=== PATIENT | male | born 1965 ===

== ENCOUNTER 2017-01-22 14:40 | Emergency (ER) | payer OTHER ==
[2017-01-22 14:55] VITALS: BP 134/82; PULSE 78; RESP 18; TEMP 98.5
--- NOTE | 2017-01-22 15:04 | ED ---
General Adult HPI - General Chief complaint: Extremity Injury, Lower Stated complaint: Foot Pain Time Seen by Provider: 01/22/17 14:52 Source: patient, RN notes reviewed Mode of arrival: ambulatory Limitations: no limitations - History of Present Illness Initial comments: Patient's a 51-year-old male who presents emergency room today with chief complaint of an injury to the right ankle that occurred approximately 2 months ago. Patient does admit that he was walking. Stepped into a pothole twisting the right ankle. He does admit that he's had pain to this area off-and-on since. Patient denies any other complaints. States it is worse with certain flexion and extension of the right ankle. Patient denies any recent fever, chills, shortness of breath, chest pain, back pain, abdominal pain, nausea or vomiting, numbness or tingling, dysuria or hematuria, constipation or diarrhea, headaches or visual changes, or any other complaints. - Related Data Allergies Allergy/AdvReac Type Severity Reaction Status Date / Time No Known Allergies Allergy Verified 01/22/17 14:50 Review of Systems ROS Statement: Those systems with pertinent positive or pertinent negative responses have been documented in the HPI. ROS Other: All systems not noted in ROS Statement are negative. Past Medical History Past Medical History: No Reported History History of Any Multi-Drug Resistant Organisms: None Reported Past Surgical History: No Surgical Hx Reported Past Psychological History: No Psychological Hx Reported Smoking Status: Never smoker Past Alcohol Use History: Rare Past Drug Use History: None Reported General Exam - General Exam Comments Initial Comments: General: The patient is awake and alert, in no distress, and does not appear acutely ill. Neck: The neck is supple, there is no tenderness or JVD. Cardiovascular: There is a regular rate and rhythm. No murmur, rub or gallop is appreciated. Respiratory: Lungs are clear to auscultation, respirations are non-labored, breath sounds are equal. No wheezes, stridor, rales, or rhonchi. Musculoskeletal: Patient does have normal appearance of the right foot and ankle with no signs of bruising or swollen. Shows full range of motion. Sensations intact pulses bilateral 2+. Strength is 5/5. Mild tenderness over the ATFL. Neurological: A&O x 3. CN II-XII intact, There are no obvious motor or sensory deficits. Coordination appears grossly intact. Speech is normal. Skin: Skin is warm and dry and no rashes or lesions are noted. Psychiatric: Normal mood and affect. Limitations: no limitations Course Vital Signs 01/22/17 14:51 Temperature 98.5 F Pulse Rate 78 Respiratory 18 Rate Blood Pressure 134/82 O2 Sat by Pulse 97 Oximetry Medical Decision Making - Medical Decision Making X-ray reviewed and is negative for any acute fracture dislocation. Results were discussed with the patient. Patient will be discharged home advised continue with his ankle brace and follow-up orthopedics if there is no improvement. Advised continued ice elevate the affected area. Disposition Clinical Impression: Ankle sprain Disposition: HOME SELF-CARE Condition: Good Instructions: Ankle Sprain (ED) Additional Instructions: Please use ibuprofen for pain as needed. Please follow-up orthopedics if symptoms are not improving. Please return to emergency room if the symptoms increase or worsen or for any other concerns. Referrals: None,Stated [Primary Care Provider] - 1-2 days Yuri Alford MD [Medical Doctor] - 1-2 days Time of Disposition: 15:27
--- NOTE | 2017-01-22 15:20 | XR ---
EXAMINATION TYPE: XR ankle complete RT DATE OF EXAM: 01/22/2017 CLINICAL HISTORY: Pain right TECHNIQUE: Frontal, lateral and oblique images of the right ankle are obtained. COMPARISON: None. FINDINGS: There is no acute fracture/dislocation evident in the right ankle. The ankle mortise appe ars within normal limits. The overlying soft tissue appears unremarkable. IMPRESSION: There is no acute fracture or dislocation in the right ankle. Follow-up exam can be perf ormed 7-10 days from acute trauma for continued pain.
== END 2017-01-22 15:39 | disposition home or self-care (01) ==
LOC: EC 14:40
DX: S93.401A Sprain of unspecified ligament of right ankle, initial encounter (principal); X50.1XXA Overexertion from prolonged static or awkward postures, initial encounter; Y93.01 Activity, walking, marching and hiking
CPT/HCPCS: 99283